=== PATIENT | female | born 1945 | race Caucasian/White ===

== ENCOUNTER 2022-04-14 07:17 | Outpatient (CLI) | payer OTHER ==
[~2022-04-14 07:17] MED LIST: ATENOLOL50 MG; ENALAPRIL/HCTZ1 TA1; PNEU16DI2; PRAVACHOL; SYNTHROID100 MCG
== END 2022-04-14 07:18 | disposition home or self-care (01) ==
LOC: NUCLEAR 07:17
PROVIDERS: ATTEND Internal Medicine Cardiovascular Disease
DX: D35.1 Benign neoplasm of parathyroid gland (principal)
CPT/HCPCS: 78071; A9500

== ENCOUNTER 2022-09-29 07:11 | Outpatient (CLI) | payer OTHER | END 2022-09-29 11:37 | disposition home or self-care (01) | LOC: NUCLEAR 07:11 | PROVIDERS: ATTEND Internal Medicine Cardiovascular Disease | DX: I25.2 Old myocardial infarction (principal) | CPT/HCPCS: 78452; 93017; A9500; J0153 ==